=== PATIENT | female | born 1980 | race African-American/Black ===

== ENCOUNTER 2017-09-23 17:29 | Emergency (ER) | payer OTHER ==
[~2017-09-23] VITALS: Ht 154.9 cm; Wt 76.2 kg
[~2017-09-23 17:29] MED LIST: ATIVAN0.5 MG PO; FLEXERIL10 MG PO; KETOROLAC TROME10 M1 PO; MOTRIN800 MG PO; ULTRAM50 M1 PO; ZOFRAN 4 MG TABL4 MG PO
[2017-09-23 17:32] VITALS: BP 131/92
--- NOTE | 2017-09-23 17:59 | ED CARDIAC/CP/PALPITATIONS ---
See Addendum History of Present Illness General Chief Complaint: General Adult Stated Complaint: DIZZINESS AT WORK Source: patient Exam Limitations: no limitations Vital Signs & Intake/Output Vital Signs & Intake/Output Vital Signs Date Time Temp Pulse Resp B/P B/P Pulse O2 O2 Flow FiO2 Mean Ox Delivery Rate 09/23 1732 96.2 80 15 131/92 99 Room Air Room Air Allergies Coded Allergies: No Known Allergies (09/23/17) Reconcile Medications CYCLOBENZAPRINE HCL (Flexeril) 10 MG TABLET 1 TAB PO TID MUSCLE RELAXATION Ketorolac Tromethamine 10 MG TABLET 1 TAB PO Q6P PRN ABDOMINAL PAIN PATIENT GIVEN iv tORADOL IN THE EMERGENCY DEPARTMENT Tramadol HCl (Ultram) 50 MG TABLET 1-2 TAB PO Q6P PRN PAIN Triage Note: PT TO ED FOR C/C OF MID CHEST ACHING AND PALPITATIONS WITH SUBSEQUENT LIGHTHEADEDNESS THAT LASTED APPROX 1 HOUR TODAY. CHEST ACHING FEELING STILL OCCURING IN TRIAGE. DENIES NAUSEA, VOMITING. Triage Nurses Notes Reviewed? yes ( ) Onset: Abrupt Duration: hour(s): Radiation: no radiation Activities at Onset: none : No Patient currently breastfeeds: No HPI: 40 year old female comes in with complaints of dizziness and chest pain that occured around 2 pm today while at work. Pain has been intermittent and sharp. Left sided. Patient reports that the dizziness has resolved and the shortness of breath has resolved. She hadn't mild shortness of breath that occurred with her symptoms earlier. She denies any fever chills cough. Denies any prior history of this but she reports that the chest pain has been going on intermittently for a couple days. (Manjeet Cortes) Past History Travel History Traveled to [place] past 21 day No Medical History Any Pertinent Medical History? see below for history Neurological: NONE EENT: NONE Cardiovascular: hyperlipidemia Respiratory: NONE Gastrointestinal: NONE Hepatic: NONE Renal: NONE Musculoskeletal: NONE Psychiatric: NONE Endocrine: NONE Blood Disorders: NONE Surgical History Surgical History: non-contributory Psychosocial History Who do you live with Patient/Self Services at Home None What is your primary language Guamanian Tobacco Use: Current Daily Use Daily Tobacco Use Amount/Type: => 5 Cigarettes daily ETOH Use: denies use Illicit Drug Use: denies illicit drug use Family History Hx Contributory? No (Manjeet Cortes) Review of Systems Review of Systems Constitutional: Reports: see HPI. EENTM: Reports: no symptoms. Respiratory: Reports: see HPI. Cardiovascular: Reports: see HPI. GI: Reports: no symptoms. Genitourinary: Reports: no symptoms. Musculoskeletal: Reports: no symptoms. Skin: Reports: no symptoms. Neurological/Psychological: Reports: no symptoms. Hematologic/Endocrine: Reports: no symptoms. Immunologic/Allergic: Reports: no symptoms. All Other Systems: Reviewed and Negative (Manjeet Cortes) Physical Exam Physical Exam General Appearance: well developed/nourished, alert, awake Head: atraumatic, normal appearance Eyes: Bilateral: normal appearance, EOMI. Ears, Nose, Throat: normal ENT inspection, hearing grossly normal Neck: normal inspection Respiratory: normal breath sounds, no respiratory distress Cardiovascular: regular rate/rhythm Gastrointestinal: soft Back: normal inspection Extremities: normal inspection Neurologic/Psych: awake, alert, oriented x 3 Skin: intact, normal color Core Measures ACS in differential dx? Yes CVA/TIA Diagnosis No Sepsis Present: No Sepsis Focused Exam Completed? No All Positive = PERC Ruled Out: Positive: age < 50 years, heart rate < 100 bpm, O2 sat > 94%, no hemoptysis, no prior DVT or PE, no unilateral leg swellin, no surgery/trauma w/in 4w. Wells Criteria Score: 0 (Manjeet Cortes) Progress Differential Diagnosis: AMI, aortic dissection, CHF/pulm edema, hyperthyroid, hyperventilation, musculoskeletal pain, myocarditis, pancreatitis, pericarditis, pneumonia, pneumothorax, pulmonary embolism, PUD/GERD, PVCs/PACs, unstable angina Plan of Care: Orders Procedure Date/time Status TROPONIN LEVEL 09/23 1738 Complete HUMAN BETA HCG SCREEN 09/23 1738 Complete COMPREHENSIVE METABOLIC PANEL 09/23 1738 Complete CBC WITHOUT DIFFERENTIAL 09/23 1738 Complete EKG 09/23 1734 Active Laboratory Tests 09/23/17 1810: Anion Gap 11, Estimated GFR > 60, BUN/Creatinine Ratio 25.7 H, Glucose 77, Calcium 9.3, Total Bilirubin 0.4, AST 26, ALT 47, Alkaline Phosphatase 78, Troponin I < 0.01, Total Protein 7.7, Albumin 4.5, Globulin 3.2, Albumin/ Globulin Ratio 1.4, Total Beta HCG NEGATIVE, CBC w Diff NO MAN DIFF REQ, RBC 4.43, MCV 93.8, MCH 31.5 H, MCHC 33.5, RDW 12.5, MPV 8.5, Gran % 58.0, Lymphocytes % 36.1, Monocytes % 4.3, Eosinophils % 1.1, Basophils % 0.5, Absolute Granulocytes 5.6, Absolute Lymphocytes 3.5 H, Absolute Monocytes 0.4, Absolute Eosinophils 0.1, Absolute Basophils 0 Diagnostic Imaging: Viewed by Me: Radiology Read. Discussed w/RAD: Radiology Read. Radiology Impression: PATIENT: DEANNE ODELL PRESENT AGE: 37 PATIENT ACCOUNT NO: [id number] : 81 LOCATION: [facility] [place] ORDERING PHYSICIAN: Manjeet SUH SERVICE DATE: 09/23/17 EXAM TYPE: RAD - XRY-CHEST XRAY, TWO VIEWS EXAMINATION: XR CHEST CLINICAL INFORMATION: Chest pain COMPARISON: 06/25/2014 TECHNIQUE: 2 views of the chest were obtained. FINDINGS: The lungs are well expanded. There is no focal consolidation, edema, or effusion. No pneumothorax. The cardiomediastinal silhouette is within normal limits. No acute osseous abnormality. IMPRESSION: No acute pulmonary findings. DICTATED BY: Amadeo Gaspar MD DATE/TIME DICTATED:09/23/171911 ANGLESMITH:FLIP DATE/TIME TRANSCRIBED:09/23/171911 CONFIDENTIAL, DO NOT COPY WITHOUT APPROPRIATE AUTHORIZATION. <Electronically signed in Other Vendor System> SIGNED BY: Amadeo Gaspar MD 09/23/171914 Initial ED EKG: normal sinus rhythm, rate (79) Comments: 09/23/17 Patient clinically looks well. Patient is in no apparent distress. Patient is nontoxic-appearing. Patient is resting comfortably in room. There is no evidence of any type of acute [place]. Symptoms similar going on for a few days. No clinical suspicion for pulmonary embolism. Patient was seen by Dr. Rocha. She is in no apparent distress upon discharge. She was referred to cardiology as outpatient. (Paras SUH,Manjeet) Departure Departure Disposition: HOME OR SELF CARE Condition: Stable Clinical Impression Primary Impression: Atypical chest pain Referrals: Elaina Linn APRN (PCP/Family) Additional Instructions: Follow-up with forest technology professor and primary care Dr. rizvi. Return if any concerns worsening symptoms. Please go over all results of today's visit with your primary care doctor. Contact your primary care doctor to let them know you were here in the emergency room. There may be nonspecific findings which may not be related to your visit today here in the emergency room but may require further evaluation and chronic monitoring by your primary care doctor. If you had a laceration today the chance of foreign body always remains. You should follow-up with your primary care doctor for recheck in 3-5 days for a wound check. If you had an x-ray done there is a chance that a fracture could have been missed on initial read and you should follow-up with your primary care doctor for repeat x-rays if symptoms persist. If your blood pressure was elevated here in the emergency room please have rechecked by chandana primary care doctor within the next 48. If you were prescribed a narcotic here in the emergency room or any type of controlled substances you're not allowed to drive while taking this medication or operate any type of heavy machinery. Narcotics can make you feel lightheaded dizziness nausea and can cause constipation. You may need to order picker a stool softener. Thank you for choosing [facility] emergency room. Please return to the emergency room immediately if you have any other concerns worsening of symptoms. Departure Forms: Customer Survey General Discharge Information (Manjeet Cortes) PA/EXCHANGE UNDERWRITING CONSULTANT Co-Sign Statement Statement: ED Attending supervision documentation- [x] I saw and evaluated the patient. I have also reviewed all the pertinent lab results and diagnostic results. I agree with the findings and the plan of care as documented in the PA's/EXCHANGE UNDERWRITING CONSULTANT's documentation. [] I have reviewed the ED Record and agree with the PA's/EXCHANGE UNDERWRITING CONSULTANT's documentation. [] Additions or exceptions (if any) to the PAs/EXCHANGE UNDERWRITING CONSULTANT's note and plan are summarized below: [] Patient with left-sided rib pain. PERC score low risk EKG reviewed. She was instructed to not smoke. She was instructed to follow up with cardiology for further outpatient workup. The duration of pain was greater than 24 hours. (Trace Rocha DO) Critical Care Note Critical Care Note Critical Care Time: non-applicable (Manjeet Cortes)
[2017-09-23 18:36] LABS: ABSOLUTE BASOPHIL COUNT 0 /CUMM (0.0-0.2); ABSOLUTE EOSINOPHIL COUNT 0.1 /CUMM (0.0-0.7); ABSOLUTE GRANULOCYTE CT 5.6 /CUMM (1.4-6.5); ABSOLUTE LYMPH COUNT 3.5 /CUMM (1.2-3.4); ABSOLUTE MONOCYTE COUNT 0.4 /CUMM (0.10-0.60); BASOPHIL % 0.5 % (0.0-2.0); EOSINOPHIL % 1.1 % (0-5); HEMATOCRIT 41.5 % (37-47); MEAN CORPUSCULAR HGB 31.5 PG (27.0-31.0); MEAN CORPUSCULAR HGB CONC 33.5 G/DL (33.0-37.0); MEAN CORPUSCULAR VOLUME 93.8 FL (81.0-99.0); MEAN PLATELET VOLUME 8.5 FL (7.4-10.4); PLATELET COUNT 250 /CUMM (130-400); RBC DISTRIBUTION WIDTH 12.5 % (11.5-14.5); RED BLOOD CELL CT 4.43 /CUMM (4.20-5.40); WHITE BLOOD CELL COUNT 9.7 /CUMM (4.8-10.8)
--- NOTE | 2017-09-23 19:15 | RADIOLOGY REPORT ---
EXAMINATION: XR CHEST CLINICAL INFORMATION: Chest pain COMPARISON: 06/25/2014 TECHNIQUE: 2 views of the chest were obtained. FINDINGS: The lungs are well expanded. There is no focal consolidation, edema, or effusion. No pneumothorax. The cardiomediastinal silhouette is within normal limits. No acute osseous abnormality. IMPRESSION: No acute pulmonary findings.
== END 2017-09-23 19:31 ==
LOC: ERH 17:29
PROVIDERS: Physician Assistant Medical
DX: R07.89 Other chest pain (principal)
CPT/HCPCS: 71046; 93005; 93010